=== PATIENT | male | born 1970 | race Caucasian/White ===

== ENCOUNTER 2023-09-10 03:13 | Day surgery (SDC) | payer OTHER, SELFPAY ==
[2023-08-25 13:18] VITALS: BMI 21.1
--- NOTE | 2023-09-08 10:33 | SUR.PREOP ---
Patient called regarding upcoming procedure. Reviewed preop instructions, appointment times, and procedure prep.
[2023-09-10 13:15] VITALS: BP 130/84; PULSE 84; RESP 18; TEMP 36.3; O2SAT 100
[2023-09-10] MEDS: LACTATED RINGERS 1,000 ML 150 ML IV CONT (13:37)
--- NOTE | 2023-09-10 13:48 | WPDANESEPPF ---
Anes - Initial Pre Proc Eval Procedure: Operation Date: 09/10/23 14:00 Proposed Procedures p Esophagogastroduodenoscopy & Colonoscopy - London Burgess MD s [facility] Hemorrhoid Treatment - London Burgess MD Date/Time: 09/10/23 13:48 Surgeon: London Burgess MD Pre Op Diagnosis: hemorrhoids, GERD, diarrhea Patient Data Age: 53 Gender: M Height: 2.01 m Weight: 82.4 kg Last Vital Signs Temp 97.3 F L 09/10/23 13:15 Pulse 84 09/10/23 13:15 Resp 18 09/10/23 13:15 BP 130/84 09/10/23 13:15 Pulse Ox 100 09/10/23 13:15 O2 Del Method Room Air 09/10/23 13:15 Allergies Allergy/AdvReac Type Severity Reaction Status Date / Time No Known Allergies Allergy Verified 09/10/23 13:10 Home Medications Medication Instructions Recorded Confirmed Type hydrocortisone acetate 25 mg 25 mg RECTAL BID #20 ea 08/11/23 08/25/23 Rx rectal suppository (Anusol-HC) famotidine 20 mg tablet (Pepcid) 20 mg PO DAILY 08/25/23 08/25/23 History ibuprofen 200 mg capsule 200 mg PO Q6H PRN Pain (Scale 08/25/23 08/25/23 History Score 1-3) polyethylene glycol 3350 17 gram 17 g PO DAILY 08/25/23 08/25/23 History oral powder packet (Miralax) Patient hx anesthesia problems: none Family hx anesthesia problems: none Results Review: All pre-operative results and documents have been reviewed as part of the pre-operative evaluation. [facility] Past Medical History Medical History (Updated 08/11/23 @ 11:08 by Aundrea Summers, AJAY) BMI 25.0-25.9,adult GERD (gastroesophageal reflux disease) Hemorrhoids Intermittent diarrhea Rectal pressure Surgical History Surgical History (Updated 08/11/23 @ 10:15 by FABIANO Thomas) Hx of hernia repair Family History Family History Father Lung cancer Mother No problems noted. Sibling No problems noted. Social History Social History (Updated 08/11/23 @ 10:17 by Lucinda Huber [facility]) Smoking status: Current some day smoker Tobacco type: cigarettes Second hand tobacco smoke exposure: No Alcohol intake: current Substance use: never Substance use type: does not use Lack of Transportation: No Lack of Food: Never True Current Housing: I Have Housing Concerned About Future Housing: No Difficulty Paying Gas/Electric Bills: No Difficulty Paying for Meds: No Currently Unemployed: No Education: Master's Degree or Higher Difficulty w/ Childcare or Family Care: No Living arrangements: with family Occupation/Education: occupation 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 Informed Consent: The patient's anesthetic plan and its attendant risks and benefits were discussed with the patient/family/POA. Questions were solicited and answers provided to the satisfaction of the patient/family/POA.
--- NOTE | 2023-09-10 14:06 | WPDHPUPDATE1 ---
History and Physical Update Update Date/Time: 09/10/23 14:06 History and Physical has been reviewed, including an updated exam of the patient. There are NO changes in the patient's condition. Risks, benefits, and alternatives have been discussed and questions answered. Patient agrees to proceed with procedure.
--- NOTE | 2023-09-10 14:25 | SUR.OPER ---
EGD end 1423 COLONOSCOPY START 1424
[2023-09-10 14:50] VITALS: BP 116/78; PULSE 78; RESP 19; O2SAT 97
--- NOTE | 2023-09-10 14:55 | W.PM.PROC2 ---
Procedure Note - Detailed Date of Procedure 09/10/23 Pre-op Diagnosis hemorrhoids, GERD, diarrhea Post-op Diagnosis Same Procedure Performed irc of internal hemorrhoids Surgeon London Burgess MD Anesthesia MAC (also had colonoscopy) Findings grade II internal hemorrhoids Description of Procedure used anoscope and found grade II internal hemorrhoids, no bleeding, no lesions. Then advanced IRC probe and hemorrhoid treated for 1.5 sec x6
[2023-09-10 15:00] VITALS: BP 142/92; PULSE 79; RESP 15; O2SAT 100
[2023-09-10 15:08] VITALS: BP 146/93; PULSE 79; RESP 15; O2SAT 100
== END 2023-09-10 15:33 | disposition home or self-care (01) ==
PROVIDERS: PCP Family Medicine; Visit Provider Internal Medicine Gastroenterology
PROC: 0DJ08ZZ Inspection of Upper Intestinal Tract, Via Natural or Artificial Opening Endoscopic (ICD-10-PCS; CPT 43235; principal; 2023-09-10 14:00)
PROC: (CPT 46930; 2023-09-10 14:00)
DX: Z12.11 Encounter for screening for malignant neoplasm of colon (principal); K63.5 Polyp of colon; K57.30 Diverticulosis of large intestine without perforation or abscess without bleeding; K64.8 Other hemorrhoids; K64.4 Residual hemorrhoidal skin tags; R19.7 Diarrhea, unspecified; K21.9 Gastro-esophageal reflux disease without esophagitis
CPT/HCPCS: 45385; 45380; 43239; 46930; 88305; J2704; J7120

== ENCOUNTER 2024-02-09 02:27 | Day surgery (SDC) | payer OTHER, SELFPAY ==
--- NOTE | 2024-02-02 15:21 | PC.NURSE ---
Report to the Outpatient Waiting Room, entrance under the green pavilion located off [facility], at time _0600_ on date _[id number]_. Planned Procedure Time: _0730_. Time changes happen often and if your time is changed the preop area will call you the afternoon before. - You and your visitor will be asked to self-screen and do not enter if you have any COVID symptoms. - A mask is optional within the hospital at this time. Patients may have clear liquids (water, carbonated beverages, clear teas, apple juice) until 3 hours prior to surgery with a maximum of 20 ounces. - No food from midnight until time of surgery Take the following medications with a SIP of water the morning of surgery: None DO NOT STOP ANY OF YOUR OTHER PRESCRIPTION MEDICATIONS PRIOR TO SURGERY ?EXCEPT THE FOLLOWING Medications to discontinue per physician None Discussed orders for bisacodyl and fleets. Patient understands orders given by Dr's office. Please no make-up, nail palauan, hairspray, perfume, deodorant, or body powder the day of surgery. No jewelry (including any body piercings) or valuables the day of surgery, leave them at home. Please take a shower or bath the night before, or the morning of, surgery with an antibacterial soap. Wear comfortable, loose fitting clothing. - Jewelry must be removed prior to entering the operating room. Rings and piercings that are not removed may be cut off. - The hospital will not accept responsibility for valuables. - Please leave all valuables, including medications, at home the day of surgery. If you are going home after surgery, a licensed crew truck driver must drive you home. - NO public transportation without another adult if you receive anesthesia. - We recommend that an adult stay with you for 24 hours following discharge. - We also recommend that you do not drive, make important decision, drink alcoholic beverages, or take any drugs that were not prescribed by your health care provider for at least 24 hours after your discharge time. Follow any additional instructions given to you from your surgeon. If you or anyone in your household have experienced Covid symptoms in the past week, please notify your surgeon or the nurse liaison at the phone number below for possible testing. Telephone instructions given to __Miranda___and asked if any additional questions and then verbalized understanding. Patient advised to call surgeon office or pre surgery nurse liaison [phone] if any additional questions.
[2024-02-02 15:30] VITALS: BMI 16.2
--- NOTE | 2024-02-07 16:47 | PM.SD2 ---
Same Day Admit/Disch: HPI History of Present Illness Chief complaint: Int & Ext Hemorrhoids with Prolapse Narrative: Miranda Shoemaker is a 54 year old male who complains of chronically prolapsing hemorrhoids which are uncomfortable if not painful and also itch. He was seen in the office and found to have a left lateral chronically prolapsed internal hemorrhoid with external hemorrhoid. On digital exam there seemed to be additional internal hemorrhoids. After discussion, he is taken to surgery now for hemorrhoidectomy. [facility] Past Medical History Medical History BMI 25.0-25.9,adult GERD (gastroesophageal reflux disease) Hemorrhoids Intermittent diarrhea Rectal pressure Surgical History Surgical History Hx of hernia repair Left Inguinal hernia repair 2016 Family History Family History Father Lung cancer Mother No problems noted. Sibling No problems noted. Social History Social History Smoking packs per day: 0.3 Smoking cigarettes per day: 6.0 Years smoked: 8 Smoking pack-years: 2.40 Smoking status: Current every day smoker Tobacco type: cigarettes Second hand tobacco smoke exposure: No Alcohol intake: current Drinks per week: 2 Substance use: never Substance use type: does not use Lack of Transportation: No Lack of Food: Never True Current Housing: I Have Housing Concerned About Future Housing: No Difficulty Paying Gas/Electric Bills: No Difficulty Paying for Meds: No Currently Unemployed: No Education: Master's Degree or Higher Difficulty w/ Childcare or Family Care: No Living arrangements: with family Occupation/Education: occupation 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[employer] Gender identity (if verbalized by the patient): Male Spiritual care concerns: No Same Day Admit/Disch: Med Pre-admit Medications Home Medications Medication Instructions Recorded Confirmed Type ibuprofen 200 mg capsule 200 mg PO Q6H PRN Pain (Scale 08/25/23 02/02/24 History Score 1-3) mineral oil 15 ml PO BID 12/14/23 02/02/24 History psyllium 1 tbsp PO BID 12/14/23 02/02/24 History ketorolac 10 mg tablet 10 mg PO Q6H 5 days #20 tabs 02/09/24 Rx oxycodone-acetaminophen 5 mg-325 1 tablet PO Q4-6H PRN pain #14 tabs 02/09/24 Rx mg tablet Review of Systems Review of Systems All systems reviewed & are unremarkable except as noted in HPI and below (HPI) Exam Const: General: comfortable, no acute distress, alert and awake HENMT: Head: normocephalic and atraumatic Mouth: Yes Normal oral and palatal mucosa present Eyes: Conjunctivae: conjunctivae normal Pupils: Equal, round and reactive pupils present EOM: EOMs intact bilaterally Neck: Neck: normal visual inspection, no lymphadenopathy and nontender Resp: Effort & Inspection: normal respiratory effort Auscultation: clear to auscultation bilaterally Cardio: Rate: regular rate Rhythm: regular rhythm Heart sounds: no gallops, no murmurs and no rubs GI: Inspection: non-distended GI Palp: Yes Soft to palpation, No Tenderness to palpation present (GI), No Hepatomegaly present and No Splenomegaly present Rectal Exam: abnormal sphincter tone increased, External hemorrhoid(s) present, Internal hemorrhoid(s) present, No Anal fissure(s) present, No Fistula present (GI), No mass and No tenderness Skin: Lesions: no lesions Rashes: no rashes Neuro: General: no focal motor deficits and CN's II-XI intact bilaterally Cranial nerves: Yes Equal, round and reactive pupils present, Yes Bilaterally intact EOM present, Yes facial symmetry and Yes Midline tongue present Speech: normal speech Motor exam (neuro): 5/5 motor strength present throughout and Motor abnormalities no
[2024-02-09] VITALS (7 sets, daily range): BP systolic 125–156; BP diastolic 78–106; PULSE 70–105; RESP 12–20; TEMP 36.2–36.6; O2SAT 98–100; BMI 22.8
[2024-02-09] MEDS: LACTATED RINGERS 1,000 ML 30 ML IV CONT ×2 (11:22→14:33)
[2024-02-09] MEDS: KETOROLAC 15 MG/ML VIAL (*BKC) IV PUSH (11:23)
[2024-02-09] MEDS: ACETAMINOPHEN 500 MG TABLET 1000 MG PO (11:23)
--- NOTE | 2024-02-09 11:44 | P.PNAN_ITS ---
Anes - Initial Pre Proc Eval Procedure: Operation Date: 02/09/24 12:30 Proposed Procedures p Excision Single Column Internal and External Hemorrhoids, Rubber Band Ligation Internal - Hayes Dietrich MD Date/Time: 02/09/24 11:44 Surgeon: Hayes Dietrich MD Pre Op Diagnosis: Int & Ext Hemorrhoids with Prolapse Patient Data Age: 54 Gender: M Height: 1.83 m Weight: 54.5 kg Allergies Allergy/AdvReac Type Severity Reaction Status Date / Time No Known Allergies Allergy Verified 02/02/24 15:12 Home Medications Medication Instructions Recorded Confirmed Type ibuprofen 200 mg capsule 200 mg PO Q6H PRN Pain (Scale 08/25/23 02/02/24 History Score 1-3) mineral oil 15 ml PO BID 12/14/23 02/02/24 History psyllium 1 tbsp PO BID 12/14/23 02/02/24 History Patient hx anesthesia problems: none Family hx anesthesia problems: none Results Review: All pre-operative results and documents have been reviewed as part of the pre- operative evaluation. [facility] Past Medical History Medical History BMI 25.0-25.9,adult GERD (gastroesophageal reflux disease) Hemorrhoids Intermittent diarrhea Rectal pressure Surgical History Surgical History Hx of hernia repair Left Inguinal hernia repair 2017 Family History Family History Father Lung cancer Mother No problems noted. Sibling No problems noted. Social History Social History Smoking packs per day: 0.3 Smoking cigarettes per day: 6.0 Years smoked: 8 Smoking pack-years: 2.40 Smoking status: Current every day smoker Tobacco type: cigarettes Second hand tobacco smoke exposure: No Alcohol intake: current Drinks per week: 2 Substance use: never Substance use type: does not use Lack of Transportation: No Lack of Food: Never True Current Housing: I Have Housing Concerned About Future Housing: No Difficulty Paying Gas/Electric Bills: No Difficulty Paying for Meds: No Currently Unemployed: No Education: Master's Degree or Higher Difficulty w/ Childcare or Family Care: No Living arrangements: with family Occupation/Education: occupation 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 Informed Consent: The patient's anesthetic plan and its attendant risks and benefits were discussed with the patient/family/POA. Questions were solicited and answers provided to the satisfaction of the patient/family/POA.
--- NOTE | 2024-02-09 13:15 | WPDHPUPDATE1 ---
History and Physical Update Update Date/Time: 02/09/24 13:15 History and Physical has been reviewed, including an updated exam of the patient. There are NO changes in the patient's condition. Risks, benefits, and alternatives have been discussed and questions answered. Patient agrees to proceed with procedure.
[2024-02-09] MEDS: ceFAZolin 2 GM/D5W 50 ML 2 GM/50 ML BAG IVPB (13:37)
[2024-02-09] MEDS: BUPIVACAINE/EPINEPHRINE 0.5% 50 ML VIAL 40 ML INFILTRATE (14:06)
--- NOTE | 2024-02-09 17:17 | P.OP_ITS ---
Procedure Note - Detailed Date of Procedure 02/09/24 Pre-op Diagnosis Int & Ext Hemorrhoids with Prolapse Post-op Diagnosis Same Procedure Performed Excision single column left lateral internal and external hemorrhoids, rubber- band ligation internal hemorrhoids x2 Surgeon Hayes Dietrich MD Medical Records Coder Ingrid Maria [facility] Anesthesia General and Local Indications Patient has chronic discomfort and itching due to a stage IV chronically prolapsed internal and external hemorrhoid in the left lateral position. A digital exam he seems to have additional internal hemorrhoids. He is taken to surgery now for excision of the left lateral complex as well as possible rubber- band ligation of additional internal hemorrhoids. Findings Findings were as expected. Patient had the stage IV prolapsed left lateral internal hemorrhoid with large external hemorrhoid. He had 2 additional large internal hemorrhoids on the right side which were rubber-band ligated. No other anorectal pathology was noted. Description of Procedure Patient was taken to surgery and induced into general anesthesia. He was then placed in prone sol-knife position. The buttocks were taped apart. Prep and drape was carried out. A small Hill-Munguia was used to inspect the anal canal. Findings were as above. I then infiltrated local anesthetic using 20 cc deep subdermal, 20 cc intrasphincteric. I then exposed the left lateral complex of internal and external hemorrhoids with a medium Hill-Munguia anoscope. I excised this complex and sent it to pathology labeled as expected. The wound was closed with a running locking 3-0 chromic suture. I then went to the patient's right side and, with a Hill-Munguia in place, rubber-band ligated 2 sets of internal hemorrhoids on the right side. The closure of the internal and external hemorrhoid complex appeared satisfactory. There was no bleeding. No other anorectal pathology was noted. The rectum was dressed with Xeroform gauze fluffs and Promise panties. Patient was returned to a supine position, awakened and taken to recovery in good condition. Sponge needle counts were correct x2. Estimated Blood Loss -5 Drains No Packing No Pathology Yes (Left lateral internal and external hemorrhoidal complex) Complications No immediate complications Condition Stable Disposition PACU [facility] Billing Surgery - Charge Forward: Surgery Billing (Excisions single column internal and external hemorrhoids, rubber-band ligation internal hemorrhoids x2.)
== END 2024-02-09 15:57 | disposition home or self-care (01) ==
PROVIDERS: Visit Provider Surgery
PROC: (CPT 46255; principal; 2024-02-09 12:30)
DX: K64.3 Fourth degree hemorrhoids (principal); F17.210 Nicotine dependence, cigarettes, uncomplicated
CPT/HCPCS: 46255; 88304; A9270; J0690; J1100; J1885; J2250; J2405; J2704; J3010; J7120

== ENCOUNTER 2025-06-28 18:56 | Emergency (ER) | payer OTHER, SELFPAY ==
--- NOTE | ~2025-06-28 | XR_ITS ---
EXAMINATION: XR chest 2V 06/28/2025 19:25 INDICATION: Cough and fatigue PROCEDURE: 2 view chest COMPARISON: FINDINGS: There is posterior basilar airspace disease on the lateral view, suspicious for pneumonia. The cardiomediastinal silhouette is within normal limits. There are no pleural effusions. There is no pneumothorax suspected. IMPRESSION: 1: Posterior basilar airspace disease, suspicious for pneumonia. Reviewed, dictated and finalized at location O.
[2025-06-28 19:07] VITALS: BP 137/82; PULSE 107; RESP 16; TEMP 37.6; O2SAT 97
--- NOTE | 2025-06-28 19:14 | ED_ITS ---
HPI - URI/Sore Throat General Chief Complaint: Upper Respiratory Infection Stated Complaint: COUGH/FEVER Time Seen by Provider: 06/28/25 19:14 Source: patient Mode of arrival: ambulatory Limitations: no limitations History of Present Illness HPI Narrative: 55 y/o male presented for c/o cough, chest congestion, fatigue and fever/chills. Onset 5 days. Endorses mild nasal congestion. Denies chest pain, palpitations, sob, wheezing, n/v/d. Has not taken anything for symptoms. Smokes occasionally. Related Data Allergies Allergy/AdvReac Type Severity Reaction Status Date / Time No Known Allergies Allergy Verified 06/28/25 19:06 Review of Systems Review of Systems: CONSTITUTIONAL: Denies body aches, reports fever, chills EYES: Denies visual changes, redness, or discharge. ENT: reports rhinorrhea, congestion, Denies sore throat, or otalgia. CARDIOVASCULAR: Denies chest pain, palpitations, or edema. RESPIRATORY: Reports cough, denies sob, wheezing. GASTROINTESTINAL: Denies abdominal pain, nausea, vomiting, or diarrhea. MUSCULOSKELETAL: Denies back pain, joint pain, or myalgia. NEUROLOGIC: Denies headache All systems reviewed & are unremarkable except as noted in HPI and below PMFSH Past Medical History Medical History BMI 25.0-25.9,adult GERD (gastroesophageal reflux disease) Hemorrhoids Intermittent diarrhea Rectal pressure Surgical History Surgical History History of hemorrhoidectomy Excision single column left lateral internal and external hemorrhoids, rubber-band ligation internal hemorrhoids x2 02/09/24 Hx of hernia repair Left Inguinal hernia repair 2017 Family History Family History Father Lung cancer Mother No problems noted. Sibling No problems noted. Social History Social History Smoking packs per day: 0.3 Smoking cigarettes per day: 6.0 Years smoked: 8 Smoking pack-years: 2.40 Smoking status: Current every day smoker Tobacco type: cigarettes Second hand tobacco smoke exposure: No Alcohol intake: current Drinks per week: 2 Substance use: never Substance use type: does not use Lack of Transportation: No Lack of Food: Never True Current Housing: I Have Housing Concerned About Future Housing: No Difficulty Paying Gas/Electric Bills: No Difficulty Paying for Meds: No Currently Unemployed: No Education: Master's Degree or Higher Difficulty w/ Childcare or Family Care: No Living arrangements: with family Occupation/Education: occupation 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 Please see nursing chart for further information. There is no relevant family history pertinent to the presenting complaint Exam Narrative: GENERAL: Well-appearing, in no acute distress. EYES: EOMI. No redness or drainage. Conjunctivae normal. ENT: Mucous membranes pink and moist. No rhinorrhea. TMs normal bilaterally. Throat normal. Uvula midline. NECK: Normal AROM. Supple. CHEST: No respiratory distress, speaks full sentences. Coarse to right base HEART: Regular rate and rhythm. No murmur appreciated. ABDOMEN: Soft, nontender, nondistended, normal active bowel sounds. EXTREMITIES: Normal range of motion. No edema. SKIN: Warm, dry, no rash. Capillary refill normal. Normal skin turgor. NEURO: Alert and oriented x3. Gait steady. PSYCH: Normal affect. Course Course Emergency Course: Patient is aware of diagnosis, understands and agrees to treatment plan. Anticipatory guidance given. Patient agrees to follow-up as directed and is aware of reasons to seek care at the emergency department. Portions of this record may have been created with voice recognition software Level of Care: Express Care Visit Vital Signs Vital signs: Vital Signs Temperature 99.7 F H 06/28/25 19:07 Pulse Rate 107 H 06/28/25 19:07 Respiratory Rate 16 06/28/25 19:07 Blood Pressure 137/82 06/28/25 19:07 Pulse Oximetry 97 06/28/25 19:07 Oxygen Delivery Room Air 06/28/25 19:07 Temperature 99.7 F H 06/28/25 19:07 Pulse Rate 107 H 06/28/25 19:07 Respiratory Rate 16 06/28/25 19:07 Blood Pressure 137/82 06/28/25 19:07 Pulse Oximetry 97 06/28/25 19:07 Oxygen Delivery Room Air 06/28/25 19:07 MDM - URI/Sore Throat MDM Narrative Medical decision making narrative: Discussed physical exam findings and CXR. Abx Augmentin and Z-pack due to hx smoking. Advised supportive measures and signs/symptoms to go to the ER. Pt is appropriate for outpt treatment and f/u. Differential Diagnosis Differential diagnosis: Likely upper respiratory infection, sinusitis, viral infection, bronchitis, pharyngitis and other (Angioedema, perforation, asthma, pneumonia, PE, tension pneumothorax, cardiac tamponade SC, pericarditis, pleural effusion, CHF, bronchitis, cardiac arrhythmia) Imaging Data Radiologist's impression: Patient: Miranda Shoemaker : 1970 MR#: [id number] Age: 55 Acct:[id number] Loc: [facility] ADM Date: 06/28/25Attending Dr: EXAMINATION: XR chest 2V 06/28/2025 19:25 INDICATION: Cough and fatigue PROCEDURE: 2 view chest COMPARISON: FINDINGS: There is posterior basilar airspace disease on the lateral view, suspicious for pneumonia. The cardiomediastinal silhouette is within normal l imits. There are no pleural effusions. There is no pneumothorax suspected. IMPRESSION: 1: Posterior basilar airspace disease, suspicious for pneumonia. Discharge Plan Discharge Clinical Impression: Pneumonia Qualifiers: Pneumonia type: due to unspecified organism Laterality: unspecified laterality Patient Disposition: Home Condition: Stable Instructions: Antibiotic Form, Pneumonia (ED) Additional Instructions: Pneumonia is a lung infection that can cause a fever, cough, and trouble breathing. How it spreads: When someone with bacterial pneumonia coughs, sneezes, or talks, they release respiratory droplets into the air that can be inhaled by others.?You can also get pneumonia by touching a contaminated surface or object and then touching your mouth or nose. You are generally contagious for around 48 hours after starting antibiotics and your fever goes away.? Take antibiotics as directed until complete (Azithromycin, Augmentin) Take steroid as directed (Medrol) eat small frequent meals. Get lots of rest and drink fluids. Alternate Tylenol and ibuprofen for pain/fever [id number] cough medication can cause drowsiness, take according to package directions If you have nasal congestion, you can take Zyrtec, Claritin along with Flonase spray To prevent the spread of pneumonia, you can:? Get vaccinated? Wash your hands often with soap and water for 20 seconds? Cover your mouth with a tissue when you cough or sneeze? Avoid people who are already sick with pneumonia? Stay home when you have pneumonia Call your Primary Care Doctor and make a follow-up appointment in 3 days. Go to the ER for worsening symptoms or concerns Patient Language: Hungarian Prescriptions: New azithromycin [Zithromax Z-Jb] 250 mg tablet See Rx Instructions .ROUTE .COMPLEX Qty: 6 0RF Rx Instructions: For 250 mg dose pack: take 500 mg today (day 1), then 250 mg for 4 days (days 2-5) methylprednisolone [Medrol (Jb)] 4 mg tablets,dose pack See Rx Instructions .ROUTE .COMPLEX Qty: 21 0RF Rx Instructions: orally per package directions amoxicillin-pot clavulanate 875-125 mg tablet 1 tablet PO Q12H 7 Days Qty: 14 0RF Follow-up/Referrals: PHYSICIAN,ASSEMBLER CRIMPER [Primary Care Provider, Internal Medicine] Time of Disposition: 19:35
== END 2025-06-28 19:40 | disposition home or self-care (01) ==
PROVIDERS: Emergency Provider Nurse Practitioner Family
DX: J18.9 Pneumonia, unspecified organism (principal); F17.210 Nicotine dependence, cigarettes, uncomplicated; K21.9 Gastro-esophageal reflux disease without esophagitis
CPT/HCPCS: 71046; 99213; G0463

== ENCOUNTER 2025-10-01 13:32 | Emergency (ER) | payer OTHER, SELFPAY ==
--- NOTE | 2025-10-01 13:34 | ED.URI ---
HPI - URI/Sore Throat General Chief Complaint: Upper Respiratory Infection Stated Complaint: Flu Symptoms Time Seen by Provider: 10/01/25 13:50 Source: patient Mode of arrival: ambulatory Limitations: no limitations History of Present Illness HPI Narrative: Miranda is a 55-year-old male patient presenting to the clinic today with complaints of flu-like symptoms x2 days. He reports he is having fever, nasal congestion, cough, and body aches. Denies any shortness of breath or chest pain. Had pneumonia a couple months ago and states he finished his full treatment and improved at that time. Related Data Home Medications ?Medication ?Instructions ?Recorded ?Confirmed ?Last Taken ?Type No Home Medications 10/01/25 10/01/25 Unknown History Allergies Allergy/AdvReac Type Severity Reaction Status Date / Time No Known Allergies Allergy Verified 10/01/25 13:39 Review of Systems Review of Systems: Pertinent positives per HPI. Patient denies any rash, visual changes, dizziness, shortness of breath, chest pain, palpitations, nausea, vomiting, diarrhea, constipation, abdominal pain, or any urinary issues. [facility] Past Medical History Medical History Rectal pressure Intermittent diarrhea Hemorrhoids GERD (gastroesophageal reflux disease) BMI 25.0-25.9,adult Surgical History Surgical History History of hemorrhoidectomy Excision single column left lateral internal and external hemorrhoids, rubber-band ligation internal hemorrhoids x2 02/09/24 Hx of hernia repair Left Inguinal hernia repair 2017 Family History Family History Father Lung cancer Mother No problems noted. Sibling No problems noted. Social History Social History Smoking packs per day: 0.3 Smoking cigarettes per day: 6.0 Years smoked: 8 Smoking pack-years: 2.40 Smoking status: Current every day smoker Tobacco type: cigarettes Second hand tobacco smoke exposure: No Alcohol intake: current Drinks per week: 2 Substance use: never Substance use type: does not use Lack of Transportation: No Lack of Food: Never True Current Housing: I Have Housing Concerned About Future Housing: No Difficulty Paying Gas/Electric Bills: No Difficulty Paying for Meds: No Currently Unemployed: No Education: Master's Degree or Higher Difficulty w/ Childcare or Family Care: No Living arrangements: with family Occupation/Education: occupation 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 There is no relevant family history pertinent to the patient complaint. Exam Narrative: General: Well-developed, well nourished, acutely ill-appearing Head: Normocephalic, atraumatic Eyes: Pupils equally round and reactive to light bilaterally, EOM intact, sclera and conjunctive clear, no discharge, lids normal Ears: TMs intact and clear, ear canals clear, no drainage, grossly hearing normal. Nose: Nares patent, clear nasal discharge, moderate inflammation, no sinus tenderness. Mouth: Oral pharynx red without lesions or masses, good dentition, MMM. Postnasal drip Neck: Supple, trachea midline, no enlargement of anterior or posterior cervical nodes, no thyroid masses or goiter palpable. Cardio: Regular rate and rhythm, s1 and s2 normal, no murmur appreciated. Resp: Clear to auscultation bilaterally, no rhonchi, rales, wheezing or rubs Course Course Level of Care: Express Care Visit MDM MDM Narrative Medical decision making narrative: At the time of visit patient is resting comfortably on the exam table. Patient appears to be nontoxic. Complaints of flu-like symptoms x2 days. He reports he is having fever, nasal congestion, cough, and body aches. Denies any shortness of breath or chest pain. Had pneumonia a couple months ago and states he finished his full treatment and improved at that time. On exam patient has bilateral TMs intact and clear, clear nasal drainage, moderate anterior turbinate inflammation, oral pharynx mildly red with postnasal drip, no cervical lymphadenopathy, lung sounds are clear, heart rates regular rate and rhythm. COVID and influenza testing was ordered Labs: COVID and influenza testing were performed. COVID testing was positive. Influenza is negative. Plan: Patient has COVID. Offered Paxlovid and patient declined. Supportive measures were discussed with the patient and they voiced understanding discharge instructions and agrees to treatment plan. Return precautions reviewed Differential Diagnosis Differential Diagnosis: Differential diagnostic considerations for upper respiratory infection include upper respiratory infection, croup, otitis media, sinusitis, viral infection, bronchitis, influenza, pharyngitis, strep, uvulitis. Discharge Plan Discharge Clinical Impression: COVID-19 Patient Disposition: Home Condition: Stable Instructions: Antibiotic Form, How to Recover from COVID-19 at Home (ED) Additional Instructions: COVID testing was positive in the clinic today. May take DayQuil/NyQuil for cold/flu symptoms Increase fluids and stay well hydrated May take Tylenol or motrin as directed on bottle for pain/fever May use Flonase 1 spray in each nare daily May take OTC antihistamines such as Zyrtec or Claritin daily as directed on bottle May apply Vicks vapor rub to chest to open sinuses Sinus rinses for congestion Cepacol spray, cough drops, throat lozenges, warm tea with honey/lemon, gargle salt water to soothe throat BRAT diet for diarrhea Clear liquids x 24 hours then advance as tolerated for nausea/vomiting Go to the ED if you develop a worsening in your condition- high fever not controlled by Tylenol or Motrin, dehydration, weakness, lethargy, shortness of breath, or chest pain. Follow up with your PCP in 3-5 days if symptoms persist. Patient Language: Kosovan Prescriptions: No Action No Home Medications Follow-up/Referrals: PHYSICIAN,FOREIGN EXCHANGE CLERK [Primary Care Provider, Internal Medicine] Stand Alone Forms: Work/School Release IP Time of Disposition: 13:54 Quality NIHSS Nursing Documentation ED NIHSS nursing documentation: reviewed/agree
[2025-10-01 13:49] VITALS: BP 135/78; PULSE 102; RESP 20; TEMP 36.5; O2SAT 100
[2025-10-01 14:07] LABS: EDCOVIDSCREEN Positive (Negative); EDINFLUASCREEN Negative (Negative); EDINFLUBSCREEN Negative (Negative)
== END 2025-10-01 14:01 | disposition home or self-care (01) ==
PROVIDERS: Emergency Provider Nurse Practitioner Family
DX: U07.1 COVID-19 (principal); K21.9 Gastro-esophageal reflux disease without esophagitis; F17.210 Nicotine dependence, cigarettes, uncomplicated
CPT/HCPCS: 87426; 87804; 99212; G0463